=== PATIENT | female | born 1995 | race Caucasian/White ===

== ENCOUNTER 2022-01-31 20:00 | Outpatient (CLI) | payer OTHER, SELFPAY ==
[2022-01-31 09:00] LABS: Glucose Fasting Check 92 mg/dl (60-115)
[2022-01-31 13:03] LABS: Glucose 2 Hour 111 mg/dl (70-95)
[2022-01-31 13:03] LABS: Glucose Fasting 96 mg/dl (70-95)
== END 2022-01-31 20:01 | disposition home or self-care (01) ==
PROVIDERS: Visit Provider Registered Nurse
DX: Z39.2 Encounter for routine postpartum follow-up (principal)
CPT/HCPCS: 82947; 82950

== ENCOUNTER 2023-01-08 12:16 | Outpatient (CLI) | payer OTHER, SELFPAY ==
--- NOTE | 2023-01-08 12:15 | CRLHL7_ITS ---
For Patients: As a result of the Cures Act, medical imaging exams and procedure reports are released immediately into your electronic medical record. You may view this report before your referring provider. If you have questions, please contact your health care provider. INDICATION: First trimester scan, establish dates. COMPARISON: None. TECHNIQUE: Real-time templeton-scale imaging of the pelvis was performed. FINDINGS: Sonographic imaging demonstrates a single living intrauterine gestation. The embryo demonstrates a regular cardiac rate measuring 116 beats per minute. The embryo`s crown-rump length measurement of 0.65 cm corresponds to a gestational age of 6 weeks 4 days with a sonographic due date of 08/30/2023. There is a normal-appearing yolk sac. There are no gross abnormalities noted within the embryo at this early state of development. The gestational sac has a normal appearance. There is no evidence of a perigestational hemorrhage. The amount of fluid within the sac appears appropriate for gestational age. The cervix is closed. The myometrium appears normal. The ovaries are of normal size. Corpus luteal cyst left ovary. There are no suspicious fluid collections noted in the cul-de-sac. IMPRESSION: Normal early first trimester OB ultrasound exam. Gestational age calculated at 6 weeks 4 days with a sonographic due date of 08/30/2023. Dictated by Arvind Leonard MD @ 01/08/2023 4:50:07 PM (Electronically Signed)
== END 2023-01-08 12:17 | disposition home or self-care (01) ==
PROVIDERS: Visit Provider Physician Assistant
DX: Z34.91 Encounter for supervision of normal pregnancy, unspecified, first trimester (principal); Z3A.01 Less than 8 weeks gestation of pregnancy
CPT/HCPCS: 76817

== ENCOUNTER 2023-01-08 15:08 | Outpatient (CLI) | payer OTHER, SELFPAY ==
[2023-01-08 16:32] LABS: Lab Add On Test New Spec Needed
== END 2023-01-08 15:09 | disposition home or self-care (01) ==
LOC: NFLDREF 15:10
PROVIDERS: Visit Provider Physician Assistant
DX: Z34.91 Encounter for supervision of normal pregnancy, unspecified, first trimester (principal); Z3A.01 Less than 8 weeks gestation of pregnancy
CPT/HCPCS: 86592; 86703; 86762; 86787; 86803; 86850; 86900; 86901; 87340

== ENCOUNTER 2023-02-05 13:06 | Outpatient (CLI) | payer OTHER, SELFPAY ==
--- NOTE | 2023-02-05 13:00 | CRLHL7_ITS ---
For Patients: As a result of the Century Cures Act, medical imaging exams and procedure reports are released immediately into your electronic medical record. You may view this report before your referring provider. If you have questions, please contact your health care provider. INDICATION: Follow-up viability COMPARISON: 01/08/2023 TECHNIQUE: Real-time templeton-scale imaging of the pelvis was performed. FINDINGS: Intrauterine gestational sac is present with a mean sac diameter 39.7 millimeters, 9 weeks 3 days. The margins of the gestational sac are somewhat irregular and there are internal echoes within the gestational sac. Incidental corpus luteal cyst left ovary measuring 1.7 x 1.4 x 1.2 cm. The right ovary is unremarkable. No pelvic free fluid. No ectopic gestation. pole is present measuring 1.6 cm, 8 weeks 0 days. No heart tones. The yolk sac is irregularly marginated and measures 4.2 millimeters. IMPRESSION: Intrauterine demise. Dictated by Arvind Leonard MD @ 02/06/2023 8:56:16 AM (Electronically Signed)
== END 2023-02-05 13:07 | disposition home or self-care (01) ==
PROVIDERS: Visit Provider Physician Assistant
DX: O02.1 Missed abortion (principal)
CPT/HCPCS: 76817

== ENCOUNTER 2023-02-07 07:47 | Day surgery (SDC) | payer OTHER, SELFPAY ==
[2023-02-07] MEDS: SODIUM CHLORIDE 0.9 % (FLUSH) 10 ML SYRINGE IVF (08:25)
[2023-02-07] MEDS: LACTATED RINGERS 1000 ML 1,000 ML 100 ML IV (08:25)
[2023-02-07 08:32] VITALS: BMI 28.3
[2023-02-07] MEDS: DOXYCYCLINE HYCLATE 200 MG in 0.9 % SODIUM CHLORIDE Mini-bag 100 ML 100 MG IVPB (08:35)
[2023-02-07 08:42] VITALS: BP 121/83; PULSE 92; RESP 16; TEMP 36.2; O2SAT 98
--- NOTE | 2023-02-07 09:11 | W.ANESCHARGE ---
Anesthesia Charges Start Date/Time Anesthesia Start Date: 02/07/23 Stop Date/Time Anesthesia Stop Date: 02/07/23
--- NOTE | 2023-02-07 10:11 | W.PM.H&PU ---
History & Physical Update History & Physical Update H&P Reviewed and patient assessed: No changes noted H&P Updates: Preoperative diagnosis: Missed at 8 weeks by CRL Planned procedure: Suction uterine curettage Labs: Blood type O positive Hemoglobin 14 General: Pleasant, no acute distress Heart: Regular rate and rhythm, no murmur or gallop Lungs: Clear to auscultation bilaterally
[2023-02-07] MEDS: BUPIVACAINE 0.25% 30 ML INJECTION (10:56)
[2023-02-07 11:14] VITALS: BP 102/69; PULSE 74; RESP 16; TEMP 36; O2SAT 97
--- NOTE | 2023-02-07 11:18 | W.ANESCHARGE ---
Anesthesia Charges Start Date/Time Anesthesia Start Date: 02/07/23 Anesthesia Start Time: 10:38 Stop Date/Time Anesthesia Stop Date: 02/07/23 Anesthesia Stop Time: 11:18
[2023-02-07 11:30] VITALS: BP 104/68; PULSE 65; RESP 16; O2SAT 99
[2023-02-07 11:45] VITALS: BP 109/70; PULSE 71; RESP 16; O2SAT 100
--- NOTE | 2023-02-07 18:32 | W.PM.GYNPROC ---
Procedure Note Date of procedure: 02/07/23 Pre-op diagnosis: Missed at 8 weeks by CRL Post-op diagnosis: same Procedure: Suction uterine curettage Anesthesia: MAC and local Complications: None Surgeon: Marilee Fish MD Estimated blood loss (mL): 25 IV fluids (mL): 800 Urine Output (mL): 10 Pathology: specimen obtained, sent to pathology Condition: stable Disposition: same day Findings: On exam under anesthesia, uterus was soft, mid position, retroverted, and were no palpable adnexal masses. There were moderate amount of products of conception obtained with suction curettage. Procedure Description: Procedure in detail: Patient was taken to the operating with IV running. She had received a single dose of IV doxycycline in preoperative prophylaxis. She was placed in dorsal lithotomy position. Monitored anesthesia care was administered. She was prepped and draped in the usual sterile fashion. Her bladder was straight catheterized. Exam under anesthesia was performed for the above-noted findings. Speculum was inserted. Cervix was grasped along its anterior lip with an Allis clamp. Paracervical block was performed with a total of 10 mL of 1% lidocaine. The cervix was serially dilated to 8 [place]. A size 8 rigid suction cannula was then passed through the cervix to the uterine fundus. Suction was applied, and the suction cannula was withdrawn along the path of insertion. This was repeated 2 more times, without obvious return of products of conception on the last pass. Thereafter, sharp curettage was performed circumferentially, and a gritty texture was noted throughout. Minimal tissue was obtained with curettings. Procedure was deemed complete. The Allis clamp was removed from the anterior lip the cervix, and hemostasis was noted. The speculum was then removed from the vagina. Patient tolerated procedure well and was taken recovery area in stable condition.
== END 2023-02-07 12:28 | disposition home or self-care (01) ==
PROVIDERS: Visit Provider Obstetrics & Gynecology
PROC: (CPT 59820; principal; 2023-02-07 08:45)
DX: O02.1 Missed abortion (principal); Z3A.08 8 weeks gestation of pregnancy
CPT/HCPCS: 59820; 01965; 36415; 81025; 85018; 86850; 86900; 86901; 88271; 88274; 88305; 88342; J0665; J1100; J1885; J2250; J2405; J2704; J3010; J7120

== ENCOUNTER 2023-02-26 15:30 | Outpatient (CLI) | payer OTHER, SELFPAY | END 2023-02-26 15:31 | disposition home or self-care (01) | LOC: NFLDREF 02-28 14:36 | PROVIDERS: Visit Provider Obstetrics & Gynecology | DX: O02.1 Missed abortion (principal) | CPT/HCPCS: 84702 ==

== ENCOUNTER 2023-03-07 08:43 | Outpatient (CLI) | payer OTHER, SELFPAY | END 2023-03-07 08:44 | disposition home or self-care (01) | LOC: NFLDREF 03-08 07:50 | PROVIDERS: Visit Provider Obstetrics & Gynecology | DX: O02.1 Missed abortion (principal) | CPT/HCPCS: 84702 ==

== ENCOUNTER 2023-03-14 09:15 | Outpatient (CLI) | payer OTHER, SELFPAY | END 2023-03-14 09:16 | disposition home or self-care (01) | LOC: NFLDREF 03-22 11:39 | PROVIDERS: Visit Provider Advanced Practice Midwife | DX: O02.1 Missed abortion (principal) | CPT/HCPCS: 84702 ==

== ENCOUNTER 2023-03-21 08:12 | Outpatient (CLI) | payer OTHER, SELFPAY | END 2023-03-21 08:13 | disposition home or self-care (01) | LOC: NFLDREF 03-22 13:27 | PROVIDERS: Visit Provider Advanced Practice Midwife | DX: O01.1 Incomplete and partial hydatidiform mole (principal) | CPT/HCPCS: 84702 ==

== ENCOUNTER 2023-03-29 11:10 | Outpatient (CLI) | payer OTHER, SELFPAY | END 2023-03-29 11:11 | disposition home or self-care (01) | LOC: NFLDREF 04-03 08:35 | PROVIDERS: Visit Provider Advanced Practice Midwife | DX: O01.1 Incomplete and partial hydatidiform mole (principal) | CPT/HCPCS: 84702 ==

== ENCOUNTER 2023-04-05 11:14 | Outpatient (CLI) | payer OTHER, SELFPAY | END 2023-04-05 11:15 | disposition home or self-care (01) | LOC: NFLDREF 04-10 08:00 | PROVIDERS: Visit Provider Advanced Practice Midwife | DX: O01.1 Incomplete and partial hydatidiform mole (principal) | CPT/HCPCS: 84702 ==

== ENCOUNTER 2024-10-09 14:00 | Outpatient (CLI) | payer BC, SELFPAY ==
--- NOTE | 2024-10-09 14:00 | CRLHL7_ITS ---
For Patients: As a result of the Century Cures Act, medical imaging exams and procedure reports are released immediately into your electronic medical record. You may view this report before your referring provider. If you have questions, please contact your health care provider. INDICATION: Dating and viability. LMP 08/07/2024. COMPARISON: None. TECHNIQUE: Real-time templeton-scale imaging of the pelvis was performed. FINDINGS: Sonographic imaging demonstrates a single living intrauterine gestation. The embryo has a regular cardiac rate measuring 183 beats per minute. The embryo`s crown-rump length measures 2.7 cm which corresponds to a gestational age of 9 weeks 3 days with sonographic due date 05/11/2025. There is a normal-appearing yolk sac. The placenta has not yet developed. No evidence of a perigestational hemorrhage. The right ovary measures 3.3 x 2.7 x 2.0 cm and the left ovary measures 2.5 x 1.1 x 1.3 cm. Corpus luteum in the right ovary. No free fluid in the pelvic cul-de-sac. IMPRESSION: 1. Single living intrauterine gestation corresponding to an ultrasound gestational age of 9 weeks 3 days with sonographic due date 05/11/2025. 2. The clinical gestational age by LMP is 9 weeks 0 days. Dictated by Qiana Spain MD @ 10/12/2024 2:22:05 AM (Electronically Signed)
== END 2024-10-09 14:01 | disposition home or self-care (01) ==
LOC: US 14:01
PROVIDERS: Visit Provider Registered Nurse
DX: Z34.91 Encounter for supervision of normal pregnancy, unspecified, first trimester (principal); Z3A.09 9 weeks gestation of pregnancy
CPT/HCPCS: 76817; 83021; 86592; 86703; 86704; 86706; 86762; 86787; 86803; 86850; 86900; 86901; 87086; 87340

== ENCOUNTER 2024-10-09 15:11 | Outpatient (CLI) | payer BC, SELFPAY | END 2024-10-09 15:12 | disposition home or self-care (01) | PROVIDERS: Visit Provider Registered Nurse | DX: Z34.81 Encounter for supervision of other normal pregnancy, first trimester (principal); Z67.40 Type O blood, Rh positive | CPT/HCPCS: 83020; 83021; 85660; 86592; 86703; 86704; 86706; 86762; 86787; 86803; 86850; 86900; 86901; 87086; 87340 ==

== ENCOUNTER 2025-01-08 12:50 | Outpatient (CLI) | payer BC, SELFPAY ==
--- NOTE | 2025-01-08 13:00 | CRLHL7_ITS ---
For Patients: As a result of the Century Cures Act, medical imaging exams and procedure reports are released immediately into your electronic medical record. You may view this report before your referring provider. If you have questions, please contact your health care provider. OB ULTRASOUND SURVEY KARLEE by US: 05/14/2025. GA: 22 w, 0 d. INDICATION: screen. TECHNIQUE: Real time grayscale imaging of the fetus was performed. Evaluate anatomy. Transabdominal imaging performed. position: Multiple positions. Cervix: : Visualized. Technique: Transabdominal. Length of closed cervix: 3.4 cm. Placenta/cord: Posterior. Technique: Transabdominal. Placenta tip to internal OS: 6.1 cm. Umbilical Cord: 3-vessel cord. Placenta insertion: Central. Amniotic Fluid: 5.4 cm SDP (greater than/equal to: 2- less than 8 cm). SURVEY: Observed Structures. Calvarium/Spine: Cerebellum: 2.3 cm, 23 w 0 d. Cisterna Magna: 7.5 mm. Nuchal Fold: 5.6 mm. Lateral Ventricle: 3.7 mm. CSP: Yes. Midline Falx: Yes. Choroid Plexus: Yes. Spine: Yes. Abdomen: Stomach: Yes. Abd Cord Insertion: Yes. Urinary Bladder: Yes. Kidneys: Yes. Diaphragm: Yes. Face: Nose/lips: Yes. Orbital view: Yes. Profile: Yes. Limbs: Upper Extremities: Yes. Lower Extremities: Yes. Hands: Yes. Feet: Yes. Vascular: 4-Chamber Heart: Yes. LVOT: Yes. RVOT: Yes. 3VV: Yes. 3VTV: Yes. BPD: 5.4 cm. 22 w, 2 d, 61 percent. HC: 20.2 cm. 22 w, 2 d, 51 percent. AC: 18.4 cm. 23 w, 1 d, 79 percent. FL: 3.9 cm. 22 w, 4 d, 58 percent. FL/AC ratio: 21.22 percent. HC/AC ratio: 1.10. heart rate: 163 bpm. age by this US: 22 w, 5 d. KARLEE by this US: 05/09/2025. EFW: 537 g. Weight: 1 lbs, 3 oz. Percentile by KARLEE: 84 percent. IMPRESSION: 1. Sonographic gestational age 22 weeks 5 days and sonographic due date 05/09/2025. Sonographic age is 5 days ahead of the clinical age. 2. anatomic survey is within normal limits. Arvind Leonard M.D. Diagnostic Radiologist [email or web address] DIANNE/jj jj/Dictated by: Arvind Leonard MD @ 01/08/2025 2:05:00 PM (Electronically Signed)
== END 2025-01-08 12:51 | disposition home or self-care (01) ==
LOC: US 12:50
PROVIDERS: Visit Provider Obstetrics & Gynecology
DX: Z34.92 Encounter for supervision of normal pregnancy, unspecified, second trimester (principal); O36.63X0 Maternal care for excessive fetal growth, third trimester, not applicable or unspecified; Z3A.22 22 weeks gestation of pregnancy
CPT/HCPCS: 76805

== ENCOUNTER 2025-02-19 12:47 | Outpatient (CLI) | payer BC, SELFPAY | END 2025-02-19 12:48 | disposition home or self-care (01) | LOC: NFLDREF 02-23 16:48 | PROVIDERS: Visit Provider Obstetrics & Gynecology | DX: Z34.83 Encounter for supervision of other normal pregnancy, third trimester (principal) | CPT/HCPCS: 86592 ==

== ENCOUNTER 2025-04-16 13:29 | Outpatient (CLI) | payer BC, SELFPAY ==
[2025-04-17 12:38] LABS: Strep B DNA Probe Negative (Negative)
[2025-04-17 13:10] LABS: Strep B Susceptibility Needed? No
== END 2025-04-16 13:30 | disposition home or self-care (01) ==
LOC: NFLDREF 13:30
PROVIDERS: Visit Provider Obstetrics & Gynecology
DX: Z34.93 Encounter for supervision of normal pregnancy, unspecified, third trimester (principal)
CPT/HCPCS: 87081; 87653

== ENCOUNTER 2025-04-27 19:55 | Outpatient (CLI) | payer BC, SELFPAY ==
[2025-04-27 20:14] VITALS: BP 119/82; PULSE 82; PULSE 93; O2SAT 96
[2025-04-27 20:42] VITALS: BP 118/71; PULSE 91
[2025-04-27 20:48] VITALS: BP 110/63; PULSE 102
[2025-04-27 20:52] VITALS: BP 120/73; PULSE 75
[2025-04-27 20:54] LABS: Appearance Urine Clear (Clear)
[2025-04-27 20:59] VITALS: BP 116/68; PULSE 71
[2025-04-27 21:03] VITALS: BP 122/79; PULSE 91
[2025-04-27] MEDS: OMEPRAZOLE 20 MG CAPSULE DR PO (21:07)
[2025-04-27 21:37] LABS: Alanine Aminotransferase* 15 U/L (4-35); Aspartate Amino Transferase* 21 U/L (12-35)
--- NOTE | 2025-04-27 22:00 | W.PM.OBO ---
OB Outpatient HPI History of Present Illness History of Present Illness: Ellyn is a 29 yo [id number] woman who presents at 37 4/7 weeks' gestation with complaint of upper abdominal pain. She reports feeling as though she had reflux this evening. She has been experiencing this for the last 3 weeks or so, and has been treating this with Tums. Tonight, despite 2 doses of Tums, symptoms did not improve. Thus, she came in for evaluation. Now that she is here, she is feeling some contractions in some discomfort in her abdomen which is not severe. She reports abundant movement. OB Problem List #Hep B nonimmune: wants to wait to get booster #History of partial molar 01/2023. Send placenta for pathology #History of gestational diabetes, diet controlled HbA1c 5.2% on 1st OB labs. Failed 1hr gtt: 154 Declined 3hr gtt. Ok to do glucose monitoring for 2 weeks NO GDM this . Only 1 elevated fasting to 99 and 1 elevated breakfast value to 127 after 2 weeks of monitoring. #Anxiety and depression. PHQ 9, PRIYANKA 12. Anxiety primarily due to worry about miscarriage. Declines medical therapy at this time. Declines seeing a therapist. Encouraged her to monitor her mood and let us know if her anxiety is worsening. #Declines Pap smear and chlamydia and gonorrhea testing. Overdue for Pap. Will be due at visit. Meds Home Medications and Allergies Home Medications ?Medication ?Instructions ?Recorded ?Confirmed ?Type Saccharomyces boulardii 250 mg 250 mg PO BID 10/09/24 04/27/25 History capsule (Daily Probiotic (S. boulardii)) docosahexaenoic acid 200 mg mg PO 10/09/24 04/23/25 History capsule ( DHA) calcium carbonate (Tums) 300 mg PO TID PRN 12/11/24 04/27/25 History magnesium 200 mg tablet 200 mg PO QDAY 12/11/24 04/27/25 History Test Strips #100 ea 02/19/25 04/23/25 Rx lancets #100 ea 02/19/25 04/23/25 Rx psyllium husk 0.4 gram capsule 0.4 g PO ONCE 03/19/25 04/27/25 History (Metamucil) docosanol 10 % topical cream 1 applic topical ONCE 04/23/25 04/27/25 History (Abreva) valacyclovir 1 gram tablet 1,000 mg PO Q12H #20 tabs 04/23/25 04/27/25 Rx omeprazole 20 mg capsule,delayed 20 mg PO QDAY 6 weeks #42 caps 04/27/25 Rx release Allergies Allergy/AdvReac Type Severity Reaction Status Date / Time oxycodone Allergy Unknown Verified 04/23/25 13:06 PFSH Medical History History of molar ?Z87.59 - Personal history of other complications of , childbirth and the puerperium (ICD-10) history ?Z87.59 - Personal history of other complications of , childbirth and the puerperium (ICD-10) Missed ?O02.1 - Missed (ICD-10) History of blood transfusion ?Z92.89 - Personal history of other medical treatment (ICD-10) Migraine without aura ?G43.009 - Migraine without aura, not intractable, without status migrainosus (ICD-10) Hx gestational diabetes ?Z86.32 - Personal history of gestational diabetes (ICD-10) Anxiety and depression ?F41.9 - Anxiety disorder, unspecified (ICD-10) ?F32.A - Depression, unspecified (ICD-10) Vaginal delivery ?O80 - Encounter for full-term uncomplicated delivery (ICD-10) Surgical History H/O dilation and curettage ?Z98.890 - Other specified postprocedural states (ICD-10) H/O ovarian cystectomy ?Z98.890 - Other specified postprocedural states (ICD-10) ?Z87.42 - Personal history of other diseases of the female genital tract (ICD-10) Family History Other Abuse, drug or alcohol Blood disorder FH: mental illness Heart disease High blood pressure Osteoporosis Stroke 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 Nonsmoker What is your current living situation?: I presently have a place to live Problems where you live: mold In the past 12 months, utilities in danger of being shut off: no In past 12 months, lack of transportation kept you from medical appts, meetings, work, or getting things needed for daily living: no In the past 12 mos, have been you worried that your food would run out before you had money to buy more?: never true In the past 12 mos, the food you bought just didn't last and you didn't have money to buy more?: never true Smoking Status: Never smoker How often do you have a drink containing alcohol: monthly or less AUDIT-C Alcohol total score: 1 Non-prescribed substance use: denies use Caffeine: Yes How often does anyone, including family, friends and others, physically hurt you: never How often does anyone, including family, friends and others, insult or talk down to you: never How often does anyone, including family, friends and others, threaten you with harm: never How often does anyone, including family, friends and others, scream or curse at you: never Health Related Social Needs: Inadequate housing (Z59.1) History History 4 Elective abortions 1 Para 1 Spontaneous abortions 1 Hx # Term Pregnancies 1 Ectopic pregnancies Hx # Pregnancies 0 Multiple births Number of Living Children 1 Past Pregnancies Del. Date GA/Weeks Outcome Route wt Inf Gender Labor Lgth Anesthesia Location Provider Compli 12/20/21 40 live - full term 7 lb 2 oz Male epidural Dojacques gestational diabetes 02/05/23 molar [facility] Delivery Date: 02/05/23 Last Updated by: Gabrielle Fajardo, TABLE ASSEMBLER METAL D+C, partial mole OB - H&P: Exam Physical Exam Vital signs: Pulse BP Pulse Ox 91 122/79 96 04/27/25 21:03 04/27/25 21:03 04/27/25 20:14 Narrative: Physical exam: Vitals as noted above. General: No acute distress Psych: Alert and oriented x 3, full affect HEENT: Normocephalic, atraumatic Abdomen: Soft, reports mild tenderness to palpation in upper abdomen, no rebound or guarding. Uterus is soft but she does report some discomfort to palpation which is diffuse. tracing: Over extended monitoring, baseline varies from 130 to 150. Variability is initially moderate with periods of marked variability. There are intermittent variable decelerations which are quite infrequent; some of these appear to be variable declels but occur during times of marked variability or prolonged accelerations. Many accelerations are present, some prolonged. The fetus is extremely active throughout. Overall, reassuring status. Labs Labs Laboratory Tests 04/27/25 04/27/25 Range/Units 21:07 20:44 AST 21 (12-35) U/L ALT 15 (4-35) U/L Amylase 101 H (18-89) U/L Lipase 66 (23-300) U/L Urine Color Yellow (Yellow) Urine Appearance Clear (Clear) Urine pH 6.5 (5.0-8.5) Ur Specific [place] 1.010 (1.000-1.030) Urine Protein Negative (Negative) Urine Glucose (UA) Negative (Negative) Urine Ketones Negative (Negative) Urine Blood Trace-intact A (Negative) Urine Nitrite Negative (Negative) Urine Bilirubin Negative (Negative) Urine Urobilinogen 0.2 (0.2-1.0) Ur Leukocyte Esterase Trace A (Negative) Urine RBC 0-2 (0-2) Urine WBC 0-2 (0-5) Ur Squamous Epith Cells Few (None-Few) Urine Bacteria Moderate A (None) Assessment and Plan Assessment and plan (1) Abdominal pain in : Status: Acute Plan Upper abdominal pain, resolves after treatment with omeprazole. minimally elevated amylase may be secondary to alone. Overall reassuring status with very active fetus. Discharge to home with follow up in clinic later this week. Omeprazole prescribed.
--- NOTE | 2025-04-28 03:30 | PC.OBNST ---
NST Note NST Note Start: 04/28/25 03:28 Freq: Status: Active Protocol: Document 04/27/25 23:20 [facility] (Rec: 04/28/25 03:30 [facility] No Response) NST Note 4 Para (# of births) 1 EDC 05/14/25 Gestational Age In 37 Weeks & 5 Days Weeks & Days Patient Presented Pain with Complaint(s) of If Pain, describe upper abdominal location Reactive Yes Appropriate for Yes Gestational Age GELACIO Allen RNC Date 04/28/25 Reactive Yes Appropriate for Yes Gestational Age RN Dr. Fish Date 04/28/25 OB NST charge Yes Complete NST Note Yes via Write Note The provider's electronic signature indicates the NST is reactive/appropriate for gestational age. *Note to provider: If an addendum is required, open the patient's chart and click on the note under the Nurse/Allied Health tab.
== END 2025-04-27 23:23 | disposition home or self-care (01) ==
LOC: OB OUT 19:56 → OB 20:05
PROVIDERS: Visit Provider Obstetrics & Gynecology
DX: O26.893 Other specified pregnancy related conditions, third trimester (principal); R10.9 Unspecified abdominal pain; Z3A.37 37 weeks gestation of pregnancy
CPT/HCPCS: 36415; 59025; 81001; 81003; 82150; 83690; 84450; 84460; 87086; G0463; A9270

== ENCOUNTER 2025-05-20 03:52 | Inpatient (IN) | payer BC, SELFPAY ==
[2025-05-20] VITALS (61 sets, daily range): BP systolic 88–167; BP diastolic 49–101; PULSE 66–169; RESP 16–20; TEMP 36.4–37.2; O2SAT 90–100; BMI 31.2
[2025-05-20] MEDS: LACTATED RINGERS 1000 ML 1,000 ML 1200 ML IV (04:38)
[2025-05-20 04:45] LABS: Hematocrit* 39.9 % (33.0-51.0); Hemoglobin* 13.3 gm/dL (12.0-16.0); Immature Granulocytes Pct Auto 0.4 %; Mean Corpuscular HGB Conc 33 gm/dL (32-36); Mean Corpuscular Hemoglobin 28 pg (26-34); Mean Corpuscular Volume 84 fL (80-100); RDW Coefficient of Variation % 13.9 % (11.5-15.5); Red Blood Count* 4.73 m/uL (4.00-5.20); White Blood Count* 11.89 K/uL (4.50-11.00)
[2025-05-20 04:46] LABS: Immature Granulocytes Abs Auto 0.00 K/uL (0.00-0.30); Lymphocytes Absolute Auto 2.50 K/uL (0.90-2.90); Slide Review Reflex No
[2025-05-20] MEDS: ROPIVACAINE 0.2 % PF 10 ML INJ 20 MG EPIDURAL (05:07)
[2025-05-20] MEDS: LIDOCAINE 2% (PF) 5 ML VIAL EPIDURAL (05:07)
--- NOTE | 2025-05-20 05:13 | PM.ANBPRC ---
[facility] Medical History History of molar ?Z87.59 - Personal history of other complications of , childbirth and the puerperium (ICD-10) history ?Z87.59 - Personal history of other complications of , childbirth and the puerperium (ICD-10) Missed ?O02.1 - Missed (ICD-10) History of blood transfusion ?Z92.89 - Personal history of other medical treatment (ICD-10) Migraine without aura ?G43.009 - Migraine without aura, not intractable, without status migrainosus (ICD-10) Hx gestational diabetes ?Z86.32 - Personal history of gestational diabetes (ICD-10) Anxiety and depression ?F41.9 - Anxiety disorder, unspecified (ICD-10) ?F32.A - Depression, unspecified (ICD-10) Vaginal delivery ?O80 - Encounter for full-term uncomplicated delivery (ICD-10) Surgical History H/O dilation and curettage ?Z98.890 - Other specified postprocedural states (ICD-10) H/O ovarian cystectomy ?Z98.890 - Other specified postprocedural states (ICD-10) ?Z87.42 - Personal history of other diseases of the female genital tract (ICD-10) Family History Other Abuse, drug or alcohol Blood disorder FH: mental illness Heart disease High blood pressure Osteoporosis Stroke 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 Nonsmoker What is your current living situation?: I presently have a place to live Problems where you live: mold In the past 12 months, utilities in danger of being shut off: no In past 12 months, lack of transportation kept you from medical appts, meetings, work, or getting things needed for daily living: no In the past 12 mos, have been you worried that your food would run out before you had money to buy more?: never true In the past 12 mos, the food you bought just didn't last and you didn't have money to buy more?: never true Smoking Status: Never smoker How often do you have a drink containing alcohol: monthly or less AUDIT-C Alcohol total score: 1 Non-prescribed substance use: denies use Caffeine: Yes How often does anyone, including family, friends and others, physically hurt you: never How often does anyone, including family, friends and others, insult or talk down to you: never How often does anyone, including family, friends and others, threaten you with harm: never How often does anyone, including family, friends and others, scream or curse at you: never Health Related Social Needs: Inadequate housing (Z59.1) Meds Home Medications and Allergies Home Medications ?Medication ?Instructions ?Recorded ?Confirmed ?Type Saccharomyces boulardii 250 mg 250 mg PO BID 10/09/24 05/14/25 History capsule (Daily Probiotic (S. boulardii)) docosahexaenoic acid 200 mg mg PO 10/09/24 05/14/25 History capsule ( DHA) calcium carbonate (Tums) 300 mg PO TID PRN 12/11/24 05/14/25 History magnesium 200 mg tablet 200 mg PO QDAY 12/11/24 05/14/25 History Test Strips #100 ea 02/19/25 05/07/25 Rx lancets #100 ea 02/19/25 05/07/25 Rx psyllium husk 0.4 gram capsule 0.4 g PO ONCE 03/19/25 05/14/25 History (Metamucil) docosanol 10 % topical cream 1 applic topical ONCE 04/23/25 05/14/25 History (Abreva) valacyclovir 1 gram tablet 1,000 mg PO Q12H #20 tabs 04/23/25 05/14/25 Rx omeprazole 20 mg capsule,delayed 20 mg PO QDAY 6 weeks #42 caps 04/27/25 05/14/25 Rx release Allergies Allergy/AdvReac Type Severity Reaction Status Date / Time oxycodone Allergy Unknown Verified 05/14/25 10:17 Results Labs Labs: Laboratory Results - last 24 hr 05/20/25 04:30 WBC 11.89 H RBC 4.73 Hgb 13.3 Hct 39.9 MCV 84 MCH 28 MCHC 33 RDW Coeff of [place] 13.9 Plt Count 247 Neut % (Auto) 70.9 Lymph % (Auto) 21.2 [place] % (Auto) 6.8 Eos % (Auto) 0.4 Baso % (Auto) 0.3 Neut # (Auto) 8.40 H Lymph # (Auto) 2.50 [place] # (Auto) 0.80 Eos # (Auto) 0.00 Baso # (Auto) 0.00 Abs Immat Gran (auto) 0.00 Imm/Tot Granulo (auto) 0.4 Vital Signs Vital Signs: Last Vital Signs Temp 98.1 F 05/20/25 04:39 Pulse 86 05/20/25 05:12 Resp 16 05/20/25 04:39 BP 130/78 05/20/25 05:12 Pulse Ox 100 05/20/25 05:13 Weight: 68.039 kg Height: 162.56 cm Anesthesia Procedures Epidural Insertion Patient Location: OB Start Time: 04:30 Stop Time: 05:14 Start Date: 05/20/25 Stop Date: 05/20/25 Reason for Block: procedure for pain Patient Position: sitting Performed By: Keaton Cleaning Preanesthetic Checklist: IV checked, risks and benefits discussed, surgical consent, monitors and equipment checked, pre-op evaluation, timeout performed and anesthesia consent Prep: chlorhexidine gluconate Monitoring: blood pressure monitoring, continuous pulse oximetry and heart rate Approach: midline Vertebral Space: lumbar (1-5) Epidural Technique: SARAHY air Needle Type: Tuohy needle Injection Technique: continuous catheter Needle gauge: 17 Needle Length (cm): 10 cm Needle Insertion Depth (cm): 7 Catheter Gauge: 19 Catheter Type: multi-orifice Catheter at skin depth (cm): 13 Test Dose Result: negative and lidocaine 1.5% with epinephrine 1 to 200,000
[2025-05-20] MEDS: ROPIVACAINE 0.2% 100 ml 100 ML 12 MG EPIDURAL (05:16)
[2025-05-20] MEDS: LACTATED RINGERS 1000 ML 1,000 ML 125 ML IV (05:24)
[2025-05-20] MEDS: PHENYLEPHRINE 100 MCG/ML SYRINGE IVP ×2 (05:31→05:43)
--- NOTE | 2025-05-20 06:24 | W.PM.LDBA ---
Subjective History of Present Illness Date Seen: 05/20/25 Narrative: Patient is being admitted to Labor and Delivery for spontaneous labor. She is a 29 year old at 40.6 weeks gestation. Her full history and physical was dictated by myself on 04/23/25. Please see this for details. Presented with regular, painful contractions. Denies LOF, vaginal bleeding or abnormal vaginal discharge. Requesting immediate epidural. Specific Issues/Plans G 4 P 1021 : Fabiano Baby boy: undecided on name H&P:04/23/25 by Vu #Hep B nonimmune: wants to wait to get booster #History of partial molar 01/2023. Send placenta for pathology #History of gestational diabetes, diet controlled HbA1c 5.2% on 1st OB labs. Failed 1hr gtt: 154 Declined 3hr gtt. Ok to do glucose monitoring for 2 weeks NO GDM this . Only 1 elevated fasting to 99 and 1 elevated breakfast value to 127 after 2 weeks of monitoring. #Anxiety and depression. PHQ 9, PRIYANKA 12. Anxiety primarily due to worry about miscarriage. Declines medical therapy at this time. Declines seeing a therapist. Encouraged her to monitor her mood and let us know if her anxiety is worsening. #Declines Pap smear and chlamydia and gonorrhea testing. Overdue for Pap. Will be due at visit. # [facility], improving with omeprazole (prescribed). Amylase mildly elevated to 101 at that time, but lipase and transaminases normal; suspect amylase elevated due to . Reassess at clinic visit 04/30. 04/30/25: Asymptomatic. Imaging: [Summary of level II or follow up US here] Vaccinations: COVID: declines Flu: declines Tdap: 03/05/2025 RSV: 04/02/25 Hep B Booster: Plans to wait until 32 week mental health: 04/02/25 GBS negative Last pap: September 2020, normal OB - Problem Based A/P Additional Plan (1) Spontaneous onset of labor: Status: Acute (2) History of molar : Status: Acute (3) Anxiety and depression: Status: Acute Plan - Patient in active labor - Requesting immediate epidural. CUSTOMER ASSOCIATE notified - GBS negative - Expectant management for ongoing spontaneous labor NST: 140 bpm, moderate variability, + accelerations, intermittent early and variable decelerations that resolve spontaneously. Cat II strip. [place]: Q1-3 minutes contractions OB Exam Physical Exam Vital signs: Temp Pulse Resp BP Pulse Ox 98.1 F 82 16 106/59 L 90 05/20/25 04:39 05/20/25 06:19 05/20/25 04:39 05/20/25 06:19 05/20/25 05:35 Narrative: SVE: /-1 per RN
--- NOTE | 2025-05-20 08:06 | P.OBPN_ITS ---
Subjective Time Seen by Provider: 08:00 Date Seen: 05/20/25 Narrative: Ellyn is a 29yo at 40w5d GA admitted for spontaneous labor. is complicated by history of partial molar , abnormal 1 hour glucola (normal 2 week QID BG monitoring), anxiety/depression. Patient's labor progressed spontaneously to 7/80/-1. She is comfortable now s/p epidural placement, but feels contractions have spaced out and this is consistent with toco. Repeat exam by RN was unchanged. Discussed recommendation to augment labor as technically this represents a labor dystocia in the active phase. Discussed IV pitocin vs AROM, where after discussion of risks/benefits she elects to proceed with AROM. Objective Exam: General: Alert and oriented, in no acute distress Psych: Appropriate mood and affect Abdomen: Gravid Cervix: 7/80/0, AROM performed with return of small volume clear fluid. NST: Category 1. Baseline 135bpm, moderate variability, accels present, no recent decelerations. [place]: Difficult to assess, contractions q3-7 minutes Vital Signs: Last Vital Signs Temp 97.5 F L 05/20/25 06:44 Pulse 90 05/20/25 08:03 Resp 16 05/20/25 06:44 BP 99/56 L 05/20/25 08:03 Pulse Ox 90 05/20/25 05:35 Plan Plan: Ellyn is a 29yo at 40w5d GA admitted for spontaneous labor. is complicated by history of partial molar , abnormal 1 hour glucola (normal 2 week QID BG monitoring), anxiety/depression. - Cervix unchanged at 7/80/0, s/p AROM with return of small volume clear fluid - Anticipate next exam in 2 hours, sooner as clinically indicated - BT O+ - GBS negative
[2025-05-20] MEDS: OXYTOCIN 30 unit/500 ML in NS 30 UNIT/500 ML BAG 300 UNIT IVPB (10:38)
[2025-05-20] MEDS: IBUPROFEN 600 MG TABLET PO ×2 (15:43→21:39)
--- NOTE | 2025-05-20 16:48 | W.PM.VAGD1_ITS ---
Procedure Procedure Done: Global Procedure Details: Normal spontaneous vaginal delivery Intrapartal Events: Labor Augmentation Delivery augmentation: rupture of membranes Delivery monitor: external FHT Route of delivery: Laceration description: None Estimated blood loss (mL): 200 Anesthesia type: Epidural Disposition: floor Complications: None Narrative: Ellyn is a 29 yo at 40w5d GA admitted for spontaneous onset of labor. is complicated by history of a partial molar , abnormal 1 hour Glucola, anxiety/depression. heart tones on admission were category 1. Her labor was augmented with amniotomy and epidural was utilized for pain management. Status of bag of gonzalez: AROM intrapartum, clear fluid. heart tones during active labor were category 1 and 2. She was complete at 0930 and started pushing at 0939. She made excellent descent throughout the second stage of labor, and had a normal spontaneous vaginal delivery at 1034. heart tones during second stage of labor were category 2 for intermittent variable decelerations, with rapid return to normal baseline. Baby delivered OA, restituted MATEO and the anterior and posterior shoulders delivered without difficulty. Nuchal cord: none, though a true knot in the cord was noted. The cord was clamped and cut after delayed cord clamping, waited 3 minutes until cord was white and pulseless per patient request. Active management of the third stage occurred with IV pitocin and gentle cord traction and the placenta delivered spontaneous and intact at 1041. Cord gases sent: no Cord blood sent for infant ABO: no details: - Liveborn male fetus at 1034 - weight 3305g - APGARs were 9 and 9 at 1 and 5 minutes respectively Perineum and vagina were inspected, and the following lacerations were noted: none. No repair required. Excellent hemostasis was noted. The following counts were correct: sponges, needles, instruments. Mother and in stable condition following the . [place] Infant Infant Gender: Male Cord Description: True Knot total score - 1 minute: 9 total score - 5 minute: 9
[2025-05-21 01:42] VITALS: BP 98/60; PULSE 74; RESP 16; O2SAT 98
[2025-05-21 05:52] LABS: Hemoglobin* 11.2 gm/dL (12.0-16.0)
[2025-05-21 06:05] VITALS: BP 119/81; PULSE 81; RESP 16; O2SAT 98
--- NOTE | 2025-05-21 08:18 | P.DS_ITS ---
DS: Providers Provider Date Seen: 05/21/25 Date of admission: 05/20/25 03:52 Primary care physician: Not a Local Provider Admitting Clinician: Micheline Pinedo MD Attending Physician on discharge: Ashlyn Xavier Date of Discharge: 05/21/25 DS: Diagnosis Discharge Diagnosis (1) care following vaginal delivery: Status: Acute (2) Lactating mother: Status: Acute Exam Narrative: Exam Narrative: GENERAL APPEARANCE:? normal affect, alert, no distress MOOD:? appropriate CHEST:? clear to auscultation HEART:? regular rate and rhythm ABDOMEN:? soft, non-tender the uterine fundus is -1 cm below Umbilicus, Midline and is appropriate for the stage of recovery. PERINEUM:? not examined: no concerns; no lac EXTREMITIES:? normal and trace non-pitting edema Const: Vital Signs, click to edit/add: Vital Signs - 24 hr 05/20/25 08:34 05/20/25 08:48 05/20/25 09:19 Temperature Pulse Rate 81 101 H 169 H Pulse Rate [Pulse Oximeter] Respiratory Rate Blood Pressure 99/59 L 100/63 142/101 H Blood Pressure [Ri ght Arm] Pulse Oximetry Oxygen Delivery Me thod 05/20/25 09:30 05/20/25 09:33 05/20/25 09:48 Temperature Pulse Rate 117 H 122 H 102 H Pulse Rate [Pulse Oximeter] Respiratory Rate Blood Pressure 118/70 120/70 117/66 Blood Pressure [Ri ght Arm] Pulse Oximetry Oxygen Delivery Me thod 05/20/25 09:53 05/20/25 10:19 05/20/25 10:35 Temperature 98.2 F Pulse Rate 129 H 118 H Pulse Rate [Pulse Oximeter] Respiratory Rate Blood Pressure 106/55 L 167/70 H Blood Pressure [Ri ght Arm] Pulse Oximetry Oxygen Delivery Me thod 05/20/25 10:55 05/20/25 10:55 05/20/25 11:03 Temperature 99.0 F Pulse Rate 89 80 Pulse Rate [Pulse Oximeter] Respiratory Rate Blood Pressure 101/58 L 93/53 L Blood Pressure [Ri ght Arm] Pulse Oximetry Oxygen Delivery Me thod 05/20/25 11:05 05/20/25 11:18 05/20/25 11:20 Temperature Pulse Rate 90 Pulse Rate [Pulse Oximeter] Respiratory Rate 16 16 Blood Pressure 101/58 L Blood Pressure [Ri ght Arm] Pulse Oximetry 98 Oxygen Delivery Me thod 05/20/25 11:33 05/20/25 11:35 05/20/25 11:48 Temperature Pulse Rate 84 81 Pulse Rate [Pulse Oximeter] Respiratory Rate 16 Blood Pressure 88/52 L 94/53 L Blood Pressure [Ri ght Arm] Pulse Oximetry Oxygen Delivery Me thod 05/20/25 11:50 05/20/25 12:03 05/20/25 12:05 Temperature 98.6 F Pulse Rate 90 Pulse Rate [Pulse Oximeter] Respiratory Rate 16 16 Blood Pressure 101/61 Blood Pressure [Ri ght Arm] Pulse Oximetry Oxygen Delivery Me thod 05/20/25 12:15 05/20/25 12:18 05/20/25 12:30 Temperature 98.6 F Pulse Rate 85 Pulse Rate [Pulse Oximeter] Respiratory Rate 16 16 Blood Pressure 102/57 L Blood Pressure [Ri ght Arm] Pulse Oximetry Oxygen Delivery Me thod 05/20/25 12:33 05/20/25 12:45 05/20/25 12:48 Temperature Pulse Rate 93 102 H Pulse Rate [Pulse Oximeter] Respiratory Rate 16 Blood Pressure 110/66 114/68 Blood Pressure [Ri ght Arm] Pulse Oximetry Oxygen Delivery Me thod 05/20/25 16:00 05/20/25 21:15 05/21/25 01:42 Temperature 97.6 F 98 F Pulse Rate Pulse Rate [Pulse Oximeter] 66 94 74 Respiratory Rate 16 20 16 Blood Pressure Blood Pressure [Ri ght Arm] 102/64 129/86 98/60 Pulse Oximetry 98 97 98 Oxygen Delivery Me thod Room Air Room Air Room Air 05/21/25 06:05 Temperature Pulse Rate Pulse Rate [Pulse Oximeter] 81 Respiratory Rate 16 Blood Pressure Blood Pressure [Ri ght Arm] 119/81 Pulse Oximetry 98 Oxygen Delivery Me thod Room Air OB - DS: Summary Hospital Course Hospital Course: Ellyn is a 29 y.o. G 4 P 2 who was admitted to [facility] for CORAL. ?She had a NVD that was uncomplicated. The patient feels well. ?The pain is well controlled with current medications. ?She has no new complaints. ?She is breast feeding and reports things are going well overall. the patient has done well.? Vitals have been stable.? She has remained afebrile.? Has a good appetite, is tolerating a general diet. ?She is voiding without difficulty.? She is passing gas and has had a bowel movement.? She is ambulating and denies any dizziness.? Has small amount of rubra lochia. She is planning NFP and condoms for prevention. Discharge home with baby.? Follow up in 2 weeks and 6 weeks.? , may see if needed? Hgb : stable. ?? For pain control of perineum, breast and pelvic pain, take 600 mg Ibuprofen every 6 hours as needed by mouth or 1000 mg acetaminophen (Tylenol) every 6 hours by mouth as needed. You can alternate these so you are taking something every 3 hours as needed. A heating pad can also be used for your abdomen or breasts. You may also take docusate sodium up to twice daily to soften your stools and help to prevent constipation. You may wean off of it when your stools return to normal.? Problems: [] Peripartum Data delivery method: Vaginal Laceration description: None complications: none Gender: Male Infant Discharge Plan: Home Time Spent with Patient Time attestation: Total time spent providing and/or coordinating discharge services: Discharge Plan Discharge Disposition: Home, Self-Care Date of Admission: 05/20/25 03:52 Attending Provider on Discharge: Ashlyn Xavier Primary Care Provider: Provider,Not a Local Condition: Stable Anticipated Discharge Date/Time: 05/21/25 12:25 Discharge Medications: New acetaminophen 500 mg Tablet 1,000 mg PO Q6H PRNQty: 0 0RF docusate sodium 100 mg Capsule 100 mg PO DAILY Qty: 0 0RF ibuprofen 600 mg Tablet 600 mg PO Q6H PRNQty: 0 0RF Lanolin (HPA) 100 % Cream 1 applic topical Q1H PRNQty: 0 0RF Continued magnesium 200 mg tablet 200 mg PO QDAY docosanol [Abreva] 10 % cream 1 applic topical ONCE DHA 200 mg capsule 200 mg PO DAILY Saccharomyces boulardii [Daily Probiotic (S. boulardii)] 250 mg capsule 250 mg PO BID psyllium husk [Metamucil] 0.4 gram capsule 0.4 g PO ONCE Discontinued Tums 300 mg (750 mg) tablet,chewable 300 mg PO TID PRN (DME) lancets Misc See Rx Instructions .MEDSUPPLY Qty: 100 3RF Rx Instructions: Test blood sugar 4 times daily. (DME) Test Strips Misc See Rx Instructions .MEDSUPPLY Qty: 100 3RF Rx Instructions: Test blood sugar 4 times daily. valacyclovir 1 gram tablet 1,000 mg PO Q12H Qty: 20 0RF Rx Instructions: If having cold sore outbreak, take 2g every 12 hours for 1 day (total of two doses). Best to initiate therapy at the earliest symptom of a cold sore omeprazole 20 mg capsule,delayed release(DR/EC) 20 mg PO QDAY 42 Days Qty: 42 0RF Discharge Orders: Discharge Order (Routine); Ordered 05/21/25 Ordered By: Ashlyn Xavier Patient Education: OB Over the Counter Medication Information, OB Vaginal/Breast Feeding Additional Instructions: Discharge instructions were reviewed with the patient including signs and symptoms of infection and home going medications Nothing vaginally for 6 weeks: no tampons or intercourse Do not drive while taking narcotic pain medication(s) Off Work or School for 6 weeks Symptoms to report to doctor: * Bleeding that saturates more than one pad per hour * Passing clots larger than the size of a golf ball * Pain not relieved by prescribed medication * Fever above 100.4 degrees Fahrenheit * A foul vaginal odor * Difficulty in emotions, mood, and functions * Thoughts of hurting yourself and/or * Painful, reddened area in your breast * Any drainage, redness, or tenderness in your IV/epidural site * Severe headache that doesn't improve after taking medications * Changes in vision, including temporary loss of vision, blurred vision, and/or light sensitivity * Upper abdominal pain (usually under ribs on the right side) * Decrease in urination or painful, frequent urinating * Chest pain * Shortness of breath * Tenderness or pain with redness and/swelling in the calf(s) of your leg Optional 2-week visit: discuss infant feeding concerns, review control options and screen for anxiety/depression. 6-week visit for an annual exam. consultation services are available to all mothers and babies for the first year after delivery.? To make an appointment, please call [phone]. Activity Level: Activity as Tolerated and No strenuous activity Discharge Diet: Regular Follow Up Appointments: Provider,Not a Local [Primary Care Provider, Family Practice] Forms: Every1Mobile Info Instructions
[2025-05-21 10:22] VITALS: BP 111/77; PULSE 78; RESP 16; TEMP 36.7; O2SAT 98
[2025-05-21] MEDS: IBUPROFEN 600 MG TABLET PO (10:28)
--- NOTE | 2025-05-21 11:19 | PM.ANPOST ---
Post Anesthesia Note Post Anesthesia Note Patient seen: Inpatient Respiratory Status: adequate Cardiovascular Status: adequate Mental Status: baseline Pain: adequate Temp: baseline Anesthetic awareness: N/A Complications: none Follow care: none (Patient reports soreness at epidural site which is common and should resolve over the next week. She also reports hip pain. Stated she had back and hip pain in and saw a chiropractor. Reports back labor pain also. This sounds related to and labor and not epidural.)
== END 2025-05-21 13:53 | disposition home or self-care (01) | DRG 560 ==
LOC: OB OUT 03:52 → OB 03:52
PROVIDERS: Obstetrics & Gynecology; Admitting Provider Obstetrics & Gynecology; Visit Provider Obstetrics & Gynecology
DX: O48.0 Post-term pregnancy (principal); O99.344 Other mental disorders complicating childbirth; F41.9 Anxiety disorder, unspecified; F32.A Depression, unspecified; Z3A.40 40 weeks gestation of pregnancy; Z37.0 Single live birth
CPT/HCPCS: 01967; 36415; 85018; 85025; 86592; 86850; 86900; 86901; G0463; A9270; J2795; J7120